=== PATIENT | female | born 1985 | race Caucasian/White ===

== ENCOUNTER 2023-07-14 19:07 | Emergency (ER) | payer OTHER, MEDICAID, SELFPAY ==
[2023-07-14 19:11] VITALS: BP 138/71; PULSE 109; RESP 18; TEMP 36.8; O2SAT 97; BMI 26.0
--- NOTE | 2023-07-14 19:18 | DI.RAD.S_ITS ---
PROCEDURE: XR CHEST 2V INDICATIONS: wet cough TECHNIQUE: 2 views of the chest were acquired. COMPARISON: None. FINDINGS: Surgical changes and devices: Thoracic spinal rods are noted. Lungs and pleura: Patient is mildly rotated towards the left. No definite focal pulmonary opacity. No pleural effusion or pneumothorax. Mediastinum: Cardiac size is likely within normal limits given patient positioning. Bones and chest wall: Scoliotic curvature of the spine and mild deformity of the left-sided ribs is noted. IMPRESSION: No acute cardiopulmonary abnormality is seen. Approved by: Matthew Guzman M.D. on 07/14/2023 at 19:42
[2023-07-14] MEDS: ALBUTEROL HFA PREPACK 1 BOX MISC (19:30)
--- NOTE | 2023-07-14 21:30 | ED.GENADULT ---
HPI - General Adult General Chief complaint: Upper Respiratory Symptoms Stated complaint: cough T-7 Time Seen by Provider: 07/14/23 21:18 Source: patient Mode of arrival: Wheelchair History of Present Illness HPI narrative: 38-year-old woman visiting her aunt with a history of mild intermittent asthma and myotonic muscular dystrophy presents with a cough present for a week. She states that she initially had a fever but that seems to have gone away. The cough is not productive but it is interfering with sleep. She is not complaining of nausea, vomiting, diarrhea, chest pain palpitations or lower extremity edema. Related Data Previous Rx's Medication Instructions Recorded prednisone 20 mg tablet 20 mg PO DAILY #5 tabs 07/14/23 Allergies Allergy/AdvReac Type Severity Reaction Status Date / Time codeine AdvReac Verified 07/14/23 19:11 metoclopramide [From Reglan] AdvReac Verified 07/14/23 19:11 Review of Systems Review of Systems Narrative: Pertinent positive and negative findings as per HPI Patient History Medical History (Updated 07/14/23 @ 21:36 by Ifeoma Valdivia MD) Asthma Muscular dystrophy Social History Smoking Status: Never smoker Smoking Status: Never smoker Substance Use Type: does not use Exam Initial Vital Signs Initial Vital Signs: Vital Signs Temperature 98.3 F 07/14/23 19:11 Pulse Rate 109 H 07/14/23 19:11 Respiratory Rate 18 07/14/23 19:11 Blood Pressure 138/71 07/14/23 19:11 Pulse Oximetry 97 07/14/23 19:11 Oxygen Delivery Method Room Air 07/14/23 19:11 General: Healthy appearing, in no acute distress. Able to give a complete and coherent history. Well-nourished well-developed HEENT: Moist mucous membranes, normal sclera with reactive pupils, Respiratory: Lungs are clear to auscultation, after 2 puffs of albuterol. No rhonchi. Full and symmetrical air movement Cardiac: Regular rate and rhythm no murmurs no bruits Abdomen: Soft, nontender, good bowel tones, no flank pain Skin: Warm and dry, no rashes Neurologic: Neurologic sequela of muscular dystrophy with no acute findings Psych: Cooperative, appropriate insight and affect Course Orders Ordered: ED Orders 07/14/23 19:18 XR chest 2V Stat Discontinued Medications Albuterol (Albuterol Hfa Prepack) 1 box MISC DIRECTED ONE Stop: 07/14/23 19:20 Last Admin: 07/14/23 19:30 Dose: 1 box Documented By: CHRISTOPH Vital Signs Vital signs: Vital Signs - 8 hr 07/14/23 19:11 Temperature 98.3 F Pulse Rate 109 H Respiratory Rate 18 Blood Pressure 138/71 Pulse Oximetry 97 Oxygen Delivery Method Room Air Medical Decision Making MDM Narrative Medical decision making narrative: CC: Persistent cough Complicating co-morbidities: Mild intermittent asthma and muscular dystrophy Data collected from: patient, aunt Social determinants of health that may influence the patients condition: Currently visiting the area Differential considered: Viral syndrome, pneumonia, acute asthma exacerbation Exam documented above, pertinent findings include: 38-year-old woman with muscular dystrophy, after 2 puffs of albuterol she is no longer wheezing and there are no rhonchi. Remainder of exam is otherwise benign Chest x-ray shows no acute findings Treatments: 40 mg of oral prednisone, albuterol inhaler Discussion: 38-year-old woman with symptoms of resolving upper respiratory infection but mild persistent cough secondary to her intermittent asthma. No evidence of respiratory distress, sepsis and no indication for additional imaging studies or hospitalization. We will have her complete 5 additional days of 20 mg of oral prednisone and she is given an MDI with spacer and instructions. This will be appropriate through the remainder of her upper respiratory infection and mild asthma exacerbation and will be enough until she is home to her usual medications. Prescription is electronically transmitted to [facility] in [place] Additional Information: Apprpriate Treatment for Patients with URI [x] The patient was diagnosed with upper respiratory infection and was not prescribed or dispensed an antibiotic. [SATISFIES MIPS PERFORMANCE] Discharge Plan Departure Patient Disposition: Home Clinical Impression: Upper respiratory infection Qualifiers: URI type: unspecified viral URI Qualified Code(s): J06.9 - Acute upper respiratory infection, unspecified Asthma exacerbation Qualifiers: Asthma severity: mild Asthma persistence: intermittent Qualified Code(s): J45.21 - Mild intermittent asthma with (acute) exacerbation Instructions: DI for Asthma -- Adult, DI for Viral Upper Respiratory Infection -- Adult Activity Restrictions/Additional Instructions: Thank you for coming in today I think that you have the same viral infection that the rest of [place] seems to have this week. Fortunately I believe the infectious portion of this is resolving nicely. There still having persistent cough as I believe that has caused a mild exacerbation to your baseline asthma. I am going to suggest 5 additional days of oral prednisone to help with the inflammation in your lungs. Please use the albuterol inhaler with spacer 2 puffs every 6 hours for wheezing or cough. Prednisone prescription was electronically transmitted to [facility] in [place] If you find that you are getting worse or develop any new symptoms, please feel free to return to the emergency department for further evaluation. Prescriptions: New prednisone 20 mg tablet 20 mg PO DAILY Qty: 5 0RF Referrals: Miscellaneous,Doctor, MD [Primary Care Provider] - Stand Alone Forms: Patient Portal/API
[2023-07-14] MEDS: predniSONE 20 MG TABLET 40 MG PO (21:38)
[2023-07-14 21:43] VITALS: BP 118/65; PULSE 87; RESP 16; TEMP 36.8; O2SAT 98
== END 2023-07-14 21:48 | disposition home or self-care (01) ==
PROVIDERS: Emergency Provider Emergency Medicine
DX: J06.9 Acute upper respiratory infection, unspecified (principal); J45.21 Mild intermittent asthma with (acute) exacerbation
CPT/HCPCS: 71046; 99283; 99284